=== PATIENT | male | born 1970 | race American Indian/Alaskan Native ===

== ENCOUNTER 2017-06-29 22:31 | Inpatient (IN) | payer MEDICAID ==
--- NOTE | 2017-06-29 22:51 | Emergency Department Report ---
ED General Adult HPI - General Chief complaint: Seizure Stated complaint: SEIZURE Time Seen by Provider: 06/29/17 22:47 Source: patient, EMS (ems notes not available at time of chart dictation), RN notes reviewed, old records reviewed Mode of arrival: Ambulatory Limitations: No Limitations - History of Present Illness Initial comments: This is a 47-year-old male whom I evaluated in the past. He does not have a primary care doctor. Past medical history includes anemia requiring packed red blood cell transfusion, hypertension, COPD, seizure disorder, noncompliant with Her therapy. Patient is brought to the hospital by EMS for breakthrough seizure. Patient reports she's been consuming alcohol today. He reports that he "fell out" and "had a seizure." Patient also complains of "total body pain." Patient denies midline neck pain, hematemesis and bright red blood per rectum. Patient's symptoms do not radiate anywhere, and did not have exacerbating or relieving factors. Patient's had extensive workup by GI in the past, they recommended pill capsule endoscopy which apparently has not been performed, and in the past was also found to have rectal prolapse, and this was proposed to be the etiology of GI bleed/anemia. In addition, patient also was found to have chronic iron deficiency anemia, and was close follow-up for IV iron supplementation, apparently this hasn't happened either. -: Sudden Improves with: none Worsens with: none Associated Symptoms: seizure, syncope, weakness. denies: confusion, chest pain , cough, diaphoresis, fever/chills, headaches, loss of appetite, malaise, nausea /vomiting, rash, shortness of breath - Related Data Previous Rx's Medication Instructions Recorded Last Taken Type Budesoni/Formotero 160-4.5(Nf) 2 puff IH BID #1 inha 01/04/15 Unknown Rx [Symbicort 160-4.5 (Nf)] Ferrous Sulfate [Feosol 325 MG tab] 325 mg PO QDAY #30 tablet 10/19/15 Unknown Rx Lisinopril [Zestril TAB] 10 mg PO QDAY #30 tablet 10/19/15 Unknown Rx levETIRAcetam [Keppra TAB] 3 tab PO QHS #90 tablet 10/19/15 Unknown Rx Allergies Allergy/AdvReac Type Severity Reaction Status Date / Time No Known Allergies Allergy Verified 06/29/17 22:51 ED Review of Systems ROS: Stated complaint: SEIZURE Other details as noted in HPI ED Past Medical Hx - Past Medical History Hx Hypertension: Yes Hx Congestive Heart Failure: No Hx Diabetes: No Hx Sickle Cell Disease: No Hx Seizures: Yes Hx Asthma: No Hx COPD: Yes Hx Tuberculosis: No Hx HIV: No Additional medical history: chronic anemia of unsure etiology, history of alcohol abuse - Social History Smoking Status: Current Every Day Smoker - Medications Home Medications: Home Medications Medication Instructions Recorded Confirmed Last Taken Type Budesoni/Formotero 160-4.5(Nf) 2 puff IH BID #1 inha 01/04/15 06/30/17 Unknown Rx [Symbicort 160-4.5 (Nf)] Ferrous Sulfate [Feosol 325 MG tab] 325 mg PO QDAY #30 tablet 10/19/15 06/30/17 Unknown Rx Lisinopril [Zestril TAB] 10 mg PO QDAY #30 tablet 10/19/15 06/30/17 Unknown Rx levETIRAcetam [Keppra TAB] 3 tab PO QHS #90 tablet 10/19/15 06/30/17 Unknown Rx ED Physical Exam - General Limitations: No Limitations General appearance: alert, in no apparent distress - Head Head exam: Present: atraumatic, normocephalic - Eye Eye exam: Present: normal appearance, EOMI. Absent: nystagmus - ENT ENT exam: Present: normal exam, normal orophraynx, mucous membranes moist, normal external ear exam - Neck Neck exam: Present: normal inspection, full ROM. Absent: tenderness, meningismus - Respiratory Respiratory exam: Present: normal lung sounds bilaterally. Absent: respiratory distress - Cardiovascular Cardiovascular Exam: Present: regular rate, normal rhythm, normal heart sounds. Absent: systolic murmur, diastolic murmur, rubs, gallop - GI/Abdominal GI/Abdominal exam: Present: soft, normal bowel sounds. Absent: distended, tenderness, guarding, rebound, rigid, pulsatile mass - Rectal Rectal exam: Present: deferred - Extremities Exam Extremities exam: Present: normal inspection, full ROM, normal capillary refill. Absent: pedal edema, joint swelling, calf tenderness - Back Exam Back exam: Present: normal inspection, full ROM. Absent: tenderness, CVA tenderness (R), paraspinal tenderness, vertebral tenderness - Neurological Exam Neurological exam: Present: alert, oriented X3, CN II-XII intact, normal gait, other (Extraocular movements intact. Tongue midline. No facial droop. Facial sensation intact to light touch in the V1, V2, V3 distribution bilaterally. 5 and 5 strength in 4 extremities.. Sensation is intact to light touch in 4 extremities.). Absent: motor sensory deficit - Psychiatric Psychiatric exam: Present: normal affect, normal mood - Skin Skin exam: Present: warm, dry, intact, normal color. Absent: rash ED Course Vital Signs 06/29/17 22:52 Temperature 98 F Pulse Rate 84 Respiratory 16 Rate Blood Pressure 132/74 O2 Sat by Pulse 100 Oximetry ED Medical Decision Making - Lab Data Result diagrams: 06/30/17 00:22 06/29/17 23:02 Vital Signs 06/29/17 22:52 Temperature 98 F Pulse Rate 84 Respiratory 16 Rate Blood Pressure 132/74 O2 Sat by Pulse 100 Oximetry Lab Results 06/29/17 06/29/17 06/29/17 Range/Units 23:02 23:02 23:02 WBC (4.5-11.0) K/mm3 RBC (3.65-5.03) M/mm3 Hgb (11.8-15.2) gm/dl Hct (35.5-45.6) % MCV (84-94) fl MCH (28-32) pg MCHC (32-34) % RDW (13.2-15.2) % Plt Count (140-440) K/mm3 PT 13.3 (12.2-14.9) Sec. INR 0.96 (0.87-1.13) Sodium 137 (137-145) mmol/L Potassium 3.8 (3.6-5.0) mmol/L Chloride 93.7 L (98-107) mmol/L Carbon Dioxide 21 L (22-30) mmol/L Anion Gap 26 mmol/L BUN 4 L (9-20) mg/dL Creatinine 0.6 L (0.8-1.5) mg/dL Estimated GFR > 60 ml/min BUN/Creatinine Ratio 7 % Glucose 75 (75-100) mg/dL Calcium 8.8 (8.4-10.2) mg/dL Magnesium 1.60 L (1.7-2.3) mg/dL Total Bilirubin 0.30 (0.1-1.2) mg/dL AST 92 H (5-40) units/L ALT 35 (7-56) units/L Alkaline Phosphatase 119 (35-129) units/L Total Creatine Kinase 30 L (55-170) units/L Total Protein 7.4 (6.3-8.2) g/dL Albumin 3.1 L (3.9-5) g/dL Albumin/Globulin Ratio 0.7 % Urine Color (Yellow) Urine Turbidity (Clear) Urine pH (5.0-7.0) Ur Specific [place] (1.003-1.030) Urine Protein (Negative) mg/dL Urine Glucose (UA) (Negative) mg/dL Urine Ketones (Negative) mg/dL Urine Blood (Negative) Urine Nitrite (Negative) Urine Bilirubin (Negative) Urine Urobilinogen (<2.0) mg/dL Ur Leukocyte Esterase (Negative) Urine WBC (Auto) (0.0-6.0) /HPF Urine RBC (Auto) (0.0-6.0) /HPF Urine Mucus /HPF Salicylates < 0.3 L (2.8-20.0) mg/dL Acetaminophen (10.0-30.0) ug/mL Plasma/Serum Alcohol (0-0.07) % 06/29/17 06/29/17 06/30/17 Range/Units 23:02 23:02 00:06 WBC (4.5-11.0) K/mm3 RBC (3.65-5.03) M/mm3 Hgb (11.8-15.2) gm/dl Hct (35.5-45.6) % MCV (84-94) fl MCH (28-32) pg MCHC (32-34) % RDW (13.2-15.2) % Plt Count (140-440) K/mm3 PT (12.2-14.9) Sec. INR (0.87-1.13) Sodium (137-145) mmol/L Potassium (3.6-5.0) mmol/L Chloride (98-107) mmol/L Carbon Dioxide (22-30) mmol/L Anion Gap mmol/L BUN (9-20) mg/dL Creatinine (0.8-1.5) mg/dL Estimated GFR ml/min BUN/Creatinine Ratio % Glucose (75-100) mg/dL Calcium (8.4-10.2) mg/dL Magnesium (1.7-2.3) mg/dL Total Bilirubin (0.1-1.2) mg/dL AST (5-40) units/L ALT (7-56) units/L Alkaline Phosphatase (35-129) units/L Total Creatine Kinase (55-170) units/L Total Protein (6.3-8.2) g/dL Albumin (3.9-5) g/dL Albumin/Globulin Ratio % Urine Color Colorless (Yellow) Urine Turbidity Clear (Clear) Urine pH 6.0 (5.0-7.0) Ur Specific [place] 1.002 L (1.003-1.030) Urine Protein <15 mg/dl (Negative) mg/dL Urine Glucose (UA) Neg (Negative) mg/dL Urine Ketones Neg (Negative) mg/dL Urine Blood Neg (Negative) Urine Nitrite Neg (Negative) Urine Bilirubin Neg (Negative) Urine Urobilinogen < 2.0 (<2.0) mg/dL Ur Leukocyte Esterase Neg (Negative) Urine WBC (Auto) < 1.0 (0.0-6.0) /HPF Urine RBC (Auto) < 1.0 (0.0-6.0) /HPF Urine Mucus 1+ /HPF Salicylates (2.8-20.0) mg/dL Acetaminophen 15.0 (10.0-30.0) ug/mL Plasma/Serum Alcohol 0.32 H (0-0.07) % 06/30/17 Range/Units 00:22 WBC 4.2 L (4.5-11.0) K/mm3 RBC 2.15 L (3.65-5.03) M/mm3 Hgb 4.4 L* (11.8-15.2) gm/dl Hct 15.7 L* (35.5-45.6) % MCV 73 L (84-94) fl MCH 20 L (28-32) pg MCHC 28 L (32-34) % RDW 24.5 H (13.2-15.2) % Plt Count 196 (140-440) K/mm3 PT (12.2-14.9) Sec. INR (0.87-1.13) Sodium (137-145) mmol/L Potassium (3.6-5.0) mmol/L Chloride (98-107) mmol/L Carbon Dioxide (22-30) mmol/L Anion Gap mmol/L BUN (9-20) mg/dL Creatinine (0.8-1.5) mg/dL Estimated GFR ml/min BUN/Creatinine Ratio % Glucose (75-100) mg/dL Calcium (8.4-10.2) mg/dL Magnesium (1.7-2.3) mg/dL Total Bilirubin (0.1-1.2) mg/dL AST (5-40) units/L ALT (7-56) units/L Alkaline Phosphatase (35-129) units/L Total Creatine Kinase (55-170) units/L Total Protein (6.3-8.2) g/dL Albumin (3.9-5) g/dL Albumin/Globulin Ratio % Urine Color (Yellow) Urine Turbidity (Clear) Urine pH (5.0-7.0) Ur Specific [place] (1.003-1.030) Urine Protein (Negative) mg/dL Urine Glucose (UA) (Negative) mg/dL Urine Ketones (Negative) mg/dL Urine Blood (Negative) Urine Nitrite (Negative) Urine Bilirubin (Negative) Urine Urobilinogen (<2.0) mg/dL Ur Leukocyte Esterase (Negative) Urine WBC (Auto) (0.0-6.0) /HPF Urine RBC (Auto) (0.0-6.0) /HPF Urine Mucus /HPF Salicylates (2.8-20.0) mg/dL Acetaminophen (10.0-30.0) ug/mL Plasma/Serum Alcohol (0-0.07) % - EKG Data -: EKG Interpreted by Ri - EKG Data 06/30/17 00:47 Sinus tachycardia, 103 bpm, normal axis, QTC prolonged, high left ventricular voltage, abnormal EKG, not morphologically consistent with a location myocardial infarction. - Radiology Data Radiology results: report reviewed, image reviewed Noncontrast CT scan of the brain and cervical spine are negative for acute traumatic disease. - Medical Decision Making Differential diagnosis, including not limited to, alcohol intoxication, anemia, breakthrough seizure secondary to medication noncompliance, acute on chronic anemia, intracranial injury, cervical spine injury Assessment and plan: Year-old male with breakthrough seizure, most likely secondary to medication noncompliance. Also was intoxicated. Noncontrast CT scan of the brain and cervical spine negative. Patient also having acute on chronic anemia, hemoglobin, hematocrit 4/15. He denies hematemesis and bright red blood per rectum. He is loaded with Keppra, packed red blood cell transfusion ordered, cases presented to the Hospital physician, Dr. Chawla, she accepts the patient to the medical service. Critical care attestation.: If time is entered above; I have spent that time in minutes in the direct care of this critically ill patient, excluding procedure time. ED Disposition Clinical Impression: Seizures, Severe anemia, Alcohol abuse Disposition: DC- OP ADMIT IP TO THIS HOSP Is pt being admited?: Yes Does the pt Need Aspirin: No Condition: Good
[2017-06-29] MEDS ORDERED: KEPPRA 1,000 MG/NS 0.75% 100ML 1,000 MG/100 ML BAG IV ONE (23:06)
--- NOTE | 2017-06-29 23:43 | Cat Scan Report ---
FINAL REPORT EXAM: CT HEAD/BRAIN WO CON HISTORY: etoh seizure TECHNIQUE: CT head without contrast PRIORS: None. FINDINGS: No acute intra-axial or extra-axial hemorrhage is identified. There is no evidence of midline shift or mass effect. The ventricles and sulci are within normal limits. Mireles-white matter differentiation is intact. No acute parenchymal abnormalities seen. Bony calvarium is grossly intact. Visualized portions of the mastoids and paranasal sinuses are unremarkable. IMPRESSION: Negative CT head
[2017-06-29 23:44] LABS: INR 0.96 (0.87-1.13)
--- NOTE | 2017-06-29 23:44 | Cat Scan Report ---
FINAL REPORT EXAM: CT CERVICAL SPINE WO CON HISTORY: etoh seizure TECHNIQUE: CT cervical spine with reconstructions PRIORS: None. FINDINGS: Vertebral bodies demonstrate normal height and alignment. The disk spaces are within normal limits. The facet joints demonstrate normal alignment. The spinous processes are intact. Craniocervical junction is unremarkable. C1 and C2 are intact. IMPRESSION: Negative CT cervical spine. No acute abnormality seen.
[2017-06-29 23:45] LABS: Alanine Aminotransferase 35 units/L (7-56); Albumin 3.1 g/dL (3.9-5); BUN/Creatinine Ratio 7; Blood Urea Nitrogen 4 mg/dL (9-20); Calcium 8.8 mg/dL (8.4-10.2); Hemolysis Index 0
[2017-06-30] MEDS ORDERED: TYLENOL ONE (00:12)
[2017-06-30] MEDS ORDERED: TYLENOL PO ONE (00:16)
[2017-06-30 00:26] LABS: Bilirubin,Urine NEG (Negative); Blood,Urine NEG (Negative); Nitrite,Urine NEG (Negative); Protein,Urine <15 mg/dL mg/dL (Negative); Urobilinogen,Urine < 2.0 mg/dL (<2.0); WBC,Urine < 1.0 /HPF (0.0-6.0)
[2017-06-30] MEDS ORDERED: NACL 0.9% 500 ML 500 ML IV ONE (00:28)
[2017-06-30 00:32] LABS: Mean Corpuscular HGB Conc 28 % (32-34); Mean Corpuscular Volume 73 fl (84-94); Platelet Count 196 K/mm3 (140-440); Red Blood Count 2.15 M/mm3 (3.65-5.03)
[2017-06-30 00:33] LABS: Hematocrit 15.7 % (35.5-45.6); Hemoglobin 4.4 gm/dl (11.8-15.2); Mean Corpuscular Hemoglobin 20 pg (28-32); Red Cell Distribution Width 24.5 % (13.2-15.2)
[2017-06-30 00:35] LABS: Color,Urine Colorless (Yellow); Mucus,Urine 1+ /HPF; RBC,Urine < 1.0 /HPF (0.0-6.0)
[2017-06-30 00:48] LABS: Amphetamine Screen,Urine PRESUMPTIVE NEGATIVE; Benzodiazepines Screen,Urine PRESUMPTIVE NEGATIVE; Cannabinoid Screen,Urine PRESUMPTIVE NEGATIVE; Cocaine Screen,Urine PRESUMPTIVE NEGATIVE; Methadone Screen,Urine PRESUMPTIVE NEGATIVE; Opiate Screen,Urine PRESUMPTIVE NEGATIVE
[2017-06-30 02:22] LABS: Band Neutrophils # (Manual) 0.3 K/mm3; Basophils % (Manual) 0 % (0.0-1.8); Eosinophils % (Manual) 0 % (0.0-4.3); Total Cells Counted 100
[2017-06-30 02:23] LABS: Anisocytosis 2+; Hypochromasia 2+; Ovalocytes Few; Poikilocytosis 1+; Target Cells Few
[2017-06-30] MEDS ORDERED: NACL 0.9% 500 ML 500 ML ONE ×2 (02:39→05:02)
[2017-06-30] MEDS ORDERED: ATIVAN IV PRN (02:49)
--- NOTE | 2017-06-30 05:54 | History and Physical Report ---
History of Present Illness Date of examination: 06/29/17 Date of admission: 06/30/17 02:49 History of present illness: 45-year-old man with a history of seizure, anemia, estrogen dependent, COPD comes to the emergency room with complaints of a seizure. Patient has not taken his Keppra in 6 months. In the emergency room he was found to have a low hemoglobin, patient is asymptomatic Review Of Systems: Constitutional: no weight loss Ears, eyes, nose, mouth and throat: no nasal congestion, no nasal discharge, no sinus pressure, blurry vision, diplopia Neck: No neck pain or rigidity. Cardiovascular: chest pain, orthopnea, palpitations Respiratory: No shortness of breath, cough Gastrointestinal: abdominal pain, hematochezia Genitourinary : no dysuria, frequency , hematuria Musculoskeletal: no muscle ache Integumentary: no rash, no pruritis Neurological: no parathesias, focal weakness Endocrine: no cold or heat intolerance, no polyuria or polydipsia Hematologic/Lymphatic: no easy bruising, no easy bleeding, no gland swelling Allergic/Immunologic: no urticaria, no angioedema. PAST SURGICAL HISTORY: None SOCIAL HISTORY: Smoke 1/6 pack of cigarettes a day, quit alcohol use, no drug use FAMILY HISTORY: Hypertension Medications and Allergies Allergies Allergy/AdvReac Type Severity Reaction Status Date / Time No Known Allergies Allergy Verified 06/29/17 22:51 Home Medications Medication Instructions Recorded Confirmed Last Taken Type Budesoni/Formotero 160-4.5(Nf) 2 puff IH BID #1 inha 01/04/15 06/30/17 Unknown Rx [Symbicort 160-4.5 (Nf)] Ferrous Sulfate [Feosol 325 MG tab] 325 mg PO QDAY #30 tablet 10/19/15 06/30/17 Unknown Rx Lisinopril [Zestril TAB] 10 mg PO QDAY #30 tablet 10/19/15 06/30/17 Unknown Rx levETIRAcetam [Keppra TAB] 3 tab PO QHS #90 tablet 10/19/15 06/30/17 Unknown Rx Active Meds: Active Medications Lorazepam (Ativan) 2 mg IV Q4H PRN PRN Reason: Seizures Exam - Physical Exam Narrative exam: Gen. appearance: Patient lying in bed in no acute distress HEENT: Normocephalic/atraumatic, pupils equal round reactive to light, extra alkaline movement intact, no scleral icterus, no JVD or thyromegaly or nodule, neck is supple, mucous membrane moist, no erythema or exudate Heart: S1-S2, regular rate and rhythm Lungs: Clear to auscultation bilateral breathing comfortable Abdomen: Positive bowel sounds, nontender, nondistended, no organomegaly Extremities: No edema, cyanosis, clubbing Neuro:: Oriented 3 , cranial nerves II-12 intact, speech, motor intact Skin: No rash, nodules, warm dry - Constitutional Vitals: Temp Pulse Resp BP Pulse Ox 98.1 F 84 18 112/72 99 06/30/17 04:41 06/30/17 04:10 06/30/17 04:41 06/30/17 04:41 06/30/17 04:10 Results - Labs CBC & Chem 7: 06/30/17 00:22 06/29/17 23:02 Labs: Abnormal lab results 06/29/17 06/29/17 06/29/17 Range/Units 23:02 23:02 23:02 WBC (4.5-11.0) K/mm3 RBC (3.65-5.03) M/mm3 Hgb (11.8-15.2) gm/dl Hct (35.5-45.6) % MCV (84-94) fl MCH (28-32) pg MCHC (32-34) % RDW (13.2-15.2) % Nucleated RBC % (0.0-0.9) % Lymphocytes # (Manual) (1.2-5.4) K/mm3 Chloride 93.7 L (98-107) mmol/L Carbon Dioxide 21 L (22-30) mmol/L BUN 4 L (9-20) mg/dL Creatinine 0.6 L (0.8-1.5) mg/dL Magnesium 1.60 L (1.7-2.3) mg/dL AST 92 H (5-40) units/L Total Creatine Kinase 30 L (55-170) units/L Albumin 3.1 L (3.9-5) g/dL Ur Specific [place] (1.003-1.030) Salicylates < 0.3 L (2.8-20.0) mg/dL Plasma/Serum Alcohol 0.32 H (0-0.07) % Crossmatch 06/29/17 06/30/17 06/30/17 Range/Units 23:02 00:06 00:22 WBC 4.2 L (4.5-11.0) K/mm3 RBC 2.15 L (3.65-5.03) M/mm3 Hgb 4.4 L* (11.8-15.2) gm/dl Hct 15.7 L* (35.5-45.6) % MCV 73 L (84-94) fl MCH 20 L (28-32) pg MCHC 28 L (32-34) % RDW 24.5 H (13.2-15.2) % Nucleated RBC % 3.0 H (0.0-0.9) % Lymphocytes # (Manual) 1.0 L (1.2-5.4) K/mm3 Chloride (98-107) mmol/L Carbon Dioxide (22-30) mmol/L BUN (9-20) mg/dL Creatinine (0.8-1.5) mg/dL Magnesium (1.7-2.3) mg/dL AST (5-40) units/L Total Creatine Kinase (55-170) units/L Albumin (3.9-5) g/dL Ur Specific [place] 1.002 L (1.003-1.030) Salicylates (2.8-20.0) mg/dL Plasma/Serum Alcohol (0-0.07) % Crossmatch See Detail - Imaging and Cardiology CT Scan - head: report reviewed Assessment and Plan Assessment Seizure, acute on chronic Severe anemia, acute on chronic COPD, stable Plan Admit to medicine Transfuse 3 units of packed red blood cells Status post loading dose of Keppra, continue Keppra, IV Ativan as needed Continue appropriate outpatient medications, consult GI Start DVT prophylaxis
--- NOTE | 2017-06-30 08:40 | Progress Note ---
Assessment and Plan Seizure, acute on chronic Severe anemia, acute on chronic COPD, stable Alcohol abuse Plan CIWA DT precaution Transfuse 3 units of packed red blood cells Status post loading dose of Keppra, continue Keppra, IV Ativan as needed Continue appropriate outpatient medications, consult GI Start DVT prophylaxis Subjective Date of service: 06/30/17 Principal diagnosis: Aocohol withdrawal, seizures Interval history: no seizures Objective - Constitutional Vitals: Vital Signs - 12hr 06/29/17 06/30/17 06/30/17 22:52 02:36 02:54 Temperature 98 F 98.5 F Pulse Rate 84 102 H Respiratory 16 16 Rate Blood Pressure 132/74 115/70 Blood Pressure [Left] O2 Sat by Pulse 100 100 98 Oximetry 06/30/17 06/30/17 06/30/17 03:00 03:10 03:15 Temperature 98 F Pulse Rate 74 Respiratory 16 Rate Blood Pressure 117/72 117/72 110/70 Blood Pressure [Left] O2 Sat by Pulse 100 100 95 Oximetry 06/30/17 06/30/17 06/30/17 03:20 03:21 03:30 Temperature Pulse Rate 74 Respiratory 16 Rate Blood Pressure 115/70 115/73 Blood Pressure 110/70 [Left] O2 Sat by Pulse 99 95 Oximetry 06/30/17 06/30/17 06/30/17 03:39 03:40 03:50 Temperature 98.2 F Pulse Rate 100 H Respiratory 16 Rate Blood Pressure 115/73 115/73 115/73 Blood Pressure [Left] O2 Sat by Pulse 99 99 99 Oximetry 06/30/17 06/30/17 06/30/17 04:00 04:10 04:41 Temperature 98 F 98.1 F Pulse Rate 84 Respiratory 16 18 Rate Blood Pressure 114/72 114/72 112/72 Blood Pressure [Left] O2 Sat by Pulse 99 Oximetry 06/30/17 06/30/17 06/30/17 05:53 06:08 06:38 Temperature 98.1 F 98.2 F 98.7 F Pulse Rate 107 H 100 H 96 H Respiratory 18 17 19 Rate Blood Pressure 112/72 138/88 138/84 Blood Pressure [Left] O2 Sat by Pulse 99 100 100 Oximetry 06/30/17 06:50 Temperature 98.7 F Pulse Rate 97 H Respiratory 20 Rate Blood Pressure 138/84 Blood Pressure [Left] O2 Sat by Pulse 100 Oximetry General appearance: Present: no acute distress, well-nourished - EENT Eyes: PERRL, EOM intact Ears: bilateral: normal - Neck Neck: supple, normal ROM - Respiratory Respiratory effort: normal Respiratory: bilateral: CTA - Breasts Breasts: normal - Cardiovascular Rhythm: regular Heart Sounds: Present: S1 & S2. Absent: gallop, rub Extremities: pulses intact, No edema, normal color, Full ROM - Gastrointestinal General gastrointestinal: Present: soft, non-tender, non-distended, normal bowel sounds - Integumentary Integumentary: clear, warm, dry - Musculoskeletal Musculoskeletal: 1, strength equal bilaterally - Neurologic Neurologic: moves all extremities - Psychiatric Psychiatric: memory intact, appropriate mood/affect, intact judgment & insight - Labs CBC & Chem 7: 06/30/17 18:31 06/29/17 23:02 Labs: Abnormal lab results 06/29/17 06/29/17 06/29/17 Range/Units 23:02 23:02 23:02 WBC (4.5-11.0) K/mm3 RBC (3.65-5.03) M/mm3 Hgb (11.8-15.2) gm/dl Hct (35.5-45.6) % MCV (84-94) fl MCH (28-32) pg MCHC (32-34) % RDW (13.2-15.2) % Nucleated RBC % (0.0-0.9) % Lymphocytes # (Manual) (1.2-5.4) K/mm3 Chloride 93.7 L (98-107) mmol/L Carbon Dioxide 21 L (22-30) mmol/L BUN 4 L (9-20) mg/dL Creatinine 0.6 L (0.8-1.5) mg/dL Magnesium 1.60 L (1.7-2.3) mg/dL AST 92 H (5-40) units/L Total Creatine Kinase 30 L (55-170) units/L Albumin 3.1 L (3.9-5) g/dL Ur Specific [place] (1.003-1.030) Salicylates < 0.3 L (2.8-20.0) mg/dL Plasma/Serum Alcohol 0.32 H (0-0.07) % Crossmatch 06/29/17 06/30/1718 Range/Units 23:02 00:06 00:22 WBC 4.2 L (4.5-11.0) K/mm3 RBC 2.15 L (3.65-5.03) M/mm3 Hgb 4.4 L* (11.8-15.2) gm/dl Hct 15.7 L* (35.5-45.6) % MCV 73 L (84-94) fl MCH 20 L (28-32) pg MCHC 28 L (32-34) % RDW 24.5 H (13.2-15.2) % Nucleated RBC % 3.0 H (0.0-0.9) % Lymphocytes # (Manual) 1.0 L (1.2-5.4) K/mm3 Chloride (98-107) mmol/L Carbon Dioxide (22-30) mmol/L BUN (9-20) mg/dL Creatinine (0.8-1.5) mg/dL Magnesium (1.7-2.3) mg/dL AST (5-40) units/L Total Creatine Kinase (55-170) units/L Albumin (3.9-5) g/dL Ur Specific [place] 1.002 L (1.003-1.030) Salicylates (2.8-20.0) mg/dL Plasma/Serum Alcohol (0-0.07) % Crossmatch See Detail
[2017-06-30] MEDS ORDERED: ZOFRAN IV PRN (10:26)
[2017-06-30] MEDS: PERCOCET 5/325 PO PRN ×2 (11:51→19:30)
[2017-06-30] MEDS: HABITROL TD SCH (11:52)
[2017-06-30 12:59] LABS: Hematocrit 18.9 % (35.5-45.6)
[2017-06-30] MEDS ORDERED: NACL 0.9% 500 ML 500 ML IV SCH (18:30)
[2017-06-30 19:05] LABS: Hematocrit 18.9 % (35.5-45.6)
[2017-06-30] MEDS: KEPPRA 750 MG in NACL 0.9% 100 ML IV SCH (22:15)
[2017-07-01] MEDS: PERCOCET 5/325 PO PRN (03:22)
[2017-07-01] MEDS: KEPPRA 750 MG in NACL 0.9% 100 ML IV SCH (11:45)
[2017-07-01] MEDS: HABITROL TD SCH (11:45)
[2017-07-01 14:28] LABS: Basophils # (Auto) 0.1 K/mm3 (0.0-0.1); Basophils % (Auto) 1.2 % (0.0-1.8); Eosinophils # (Auto) 0.1 K/mm3 (0.0-0.4); Eosinophils % (Auto) 1.2 % (0.0-4.3); Hemoglobin 9.1 gm/dl (11.8-15.2); Lymphocytes # (Auto) 0.6 K/mm3 (1.2-5.4); Lymphocytes % (Auto) 12.7 % (13.4-35.0); Mean Corpuscular HGB Conc 33 % (32-34); Mean Corpuscular Hemoglobin 27 pg (28-32); Mean Corpuscular Volume 82 fl (84-94); Monocytes # (Auto) 0.6 K/mm3 (0.0-0.8); Monocytes % (Auto) 12.3 % (0.0-7.3); Platelet Count 100 K/mm3 (140-440); Red Blood Count 3.43 M/mm3 (3.65-5.03)
[2017-07-01 14:39] LABS: Red Cell Distribution Width 24.2 % (13.2-15.2)
[2017-07-01 14:50] LABS: Alanine Aminotransferase 22 units/L (7-56); Albumin 2.5 g/dL (3.9-5); BUN/Creatinine Ratio 6; Blood Urea Nitrogen 4 mg/dL (9-20); Calcium 8.2 mg/dL (8.4-10.2); Hemolysis Index 7
[2017-07-01 16:12] VITALS: BP 141/93
--- NOTE | 2017-07-01 16:55 | Discharge Summary ---
Providers - Providers Date of Admission: 06/30/17 02:49 Attending physician: NELLY MILLER MD 06/30/17 12:40 Consult to Dietitian/Nutrition [CONS] Routine Physician Instructions: Reason For Exam: Reason for Consult: Malnutrition Primary care physician: CABLE OPERATOR Hospitalization Condition: Good Hospital course: 45-year-old man with a history of seizure, anemia, estrogen dependent, COPD comes to the emergency room with complaints of a seizure. Patient has not taken his Keppra in 6 months. In the emergency room he was found to have a low hemoglobin, patient is asymptomatic Seizure, acute on chronic Severe anemia, acute on chronic COPD, stable Alcohol abuse Plan CIWA DT precaution Transfuse 3 units of packed red blood cells Status post loading dose of Keppra, continue Keppra, IV Ativan as needed Continue appropriate outpatient medications, consult GI Start DVT prophylaxis Disposition: TO HOME OR SELFCARE Time spent for discharge: 33 minutes Core Measure Documentation - Palliative Care Palliative Care/ Comfort Measures: Not Applicable - Core Measures Any of the following diagnoses?: none Exam - Constitutional Vitals: Temp Pulse Resp BP Pulse Ox 98.9 F 102 H 18 141/93 99 07/01/17 15:48 07/01/17 15:48 07/01/17 15:48 07/01/17 15:48 07/01/17 15:48 General appearance: Present: no acute distress, well-nourished - EENT Eyes: Present: PERRL ENT: hearing intact, clear oral mucosa - Neck Neck: Present: supple, normal ROM - Respiratory Respiratory effort: normal Respiratory: bilateral: CTA - Cardiovascular Heart Sounds: Present: S1 & S2. Absent: rub, click - Extremities Extremities: pulses symmetrical, No edema Peripheral Pulses: within normal limits - Abdominal General gastrointestinal: Present: soft, non-tender, non-distended, normal bowel sounds Male genitourinary: Present: normal - Integumentary Integumentary: Present: clear, warm, dry - Musculoskeletal Musculoskeletal: gait normal, strength equal bilaterally - Psychiatric Psychiatric: appropriate mood/affect, intact judgment & insight - Neurologic Neurologic: CNII-XII intact, moves all extremities Plan Follow up with: PRIMARY CARE, [Primary Care Provider] - 3-5 Days Prescriptions: Budesoni/Formotero 160-4.5(Nf) [Symbicort 160-4.5 (Nf)] 2 puff IH BID #1 inha Ferrous Sulfate [Feosol 325 MG tab] 325 mg PO QDAY #30 tablet levETIRAcetam [Keppra TAB] 750 mg PO BID 30 Days tablet Lisinopril [Zestril TAB] 10 mg PO QDAY #30 tablet Nicotine [Habitrol] 21 mg TD QDAY #30 patch
[2017-07-02] MEDS ORDERED: KEPPRA PO SCH (10:00)
== END 2017-07-01 19:33 | disposition home or self-care (01) | DRG 812 ==
LOC: ED 22:31 → 3A 06-30 02:49
PROVIDERS: ADMIT Internal Medicine; ATTEND Internal Medicine
PROC: 30233N1 Transfusion of Nonautologous Red Blood Cells into Peripheral Vein, Percutaneous Approach (ICD-10-PCS; principal; 2017-06-30)
DX: D50.0 Iron deficiency anemia secondary to blood loss (chronic) (principal); G40.909 Epilepsy, unspecified, not intractable, without status epilepticus; I10 Essential (primary) hypertension; J44.9 Chronic obstructive pulmonary disease, unspecified; F17.200 Nicotine dependence, unspecified, uncomplicated; F10.10 Alcohol abuse, uncomplicated; Y90.9 Presence of alcohol in blood, level not specified; F17.210 Nicotine dependence, cigarettes, uncomplicated; D64.9 Anemia, unspecified; Z82.49 Family history of ischemic heart disease and other diseases of the circulatory system
CPT/HCPCS: 36415; 36430; 70450; 72125; 80053; 80307; 80320; 81001; 82550; 83735; 85007; 85014; 85018; 85025; 85027; 85610; 86850; 86900; 86901; 86920; 93005; 93010; 96365; 96366; 99406; G0480; J1953; J2405; J7040; P9016

== ENCOUNTER 2017-08-11 00:58 | Emergency (ER) | payer MEDICAID ==
[2017-08-11] MEDS ORDERED: SUBLIMAZE IV ONE (01:02)
[2017-08-11] MEDS ORDERED: NACL 0.9% 1000 ML 1,000 ML ONE (01:02)
[2017-08-11] MEDS ORDERED: AMIDATE IV ONE ×2 (01:15→01:20)
[2017-08-11] MEDS ORDERED: NACL 0.9% 1000 ML 1,000 ML IV ONE ×3 (01:20→05:19)
--- NOTE | 2017-08-11 01:21 | Emergency Department Report ---
ED General Adult HPI - General Chief complaint: Weakness Stated complaint: CHEST PAIN Time Seen by Provider: 08/11/17 01:19 Source: patient, EMS (verbal report received from EMS.ems notes not available at time of chart dictation), RN notes reviewed, old records reviewed Limitations: Physical Limitation - History of Present Illness Initial comments: This is a 47-year-old male. I have evaluated him in the past. Past medical history includes anemia, seizure disorder, alcohol consumption. Please see my note from 06/29/2017 for more detailed past medical history. Patient does report a history of COPD. The patient is brought to the hospital today by EMS for seizure versus syncope, tachycardia, possible SVT. EMS reported that patient in the field had a supraventricular tachycardia did that did not respond to vagal maneuvers or to 100 J shock. They also report that the patient was diaphoretic, complaining of chest pain and weakness, and had no pulses. Upon arrival to the ER, the patient was awake, complaining of generalized weakness and had thready pulses. He had a tachycardic rhythm that was consistently 160 bpm, appeared to be consistent with supraventricular tachycardia. It did not respond to vagal maneuvers, the patient was hypotensive. He was therefore administrated weakly consented by myself for moderate sedation and synchronized cardioversion. He was given 10 mg of etomidate, and 25 g of fentanyl, and received a cardioversion at 200 J. At the same time, he had 1 L of normal saline open wide open. At the cardioversion, rhythm remained unchanged, it appeared to slow down slightly to the high 140s, low 150s. Blood pressure now improved in the high 90s, low 100s, still tachycardic. Given that patient is tachycardic, with thready pulses, low blood pressure, seizure versus syncope, emergency CT scan of the head, neck, chest are ordered by myself. Given tenuous vital signs and critical nature of the patient's condition, the patient was administratively, emergently consented by myself For emergent CT angiogram of the chest. I did explain this to the patient and his friend/family, and they also verbalize understanding, and gave verbal consent. -: Gradual, days(s) Location: chest Radiation: non-radiation Quality: aching Consistency: intermittent Improves with: none Worsens with: none Associated Symptoms: confusion, chest pain, headaches, loss of appetite, malaise , seizure, shortness of breath, syncope, weakness. denies: cough, diaphoresis, fever/chills, nausea/vomiting, rash - Related Data Previous Rx's Medication Instructions Recorded Last Taken Type Lisinopril [Zestril TAB] 10 mg PO QDAY #30 tablet 07/01/17 1 Week Ago Rx ~08/04/17 levETIRAcetam [Keppra TAB] 750 mg PO BID 30 Days tablet 07/01/17 1 Week Ago Rx ~08/04/17 Allergies Allergy/AdvReac Type Severity Reaction Status Date / Time No Known Allergies Allergy Verified 06/29/17 22:51 ED Review of Systems ROS: Stated complaint: CHEST PAIN Other details as noted in HPI Comment: All other systems reviewed and negative ED Past Medical Hx - Past Medical History Hx Hypertension: Yes Hx Congestive Heart Failure: No Hx Diabetes: No Hx Sickle Cell Disease: No Hx Seizures: Yes Hx Asthma: No Hx COPD: Yes Hx Tuberculosis: No Hx HIV: No Additional medical history: chronic anemia of unsure etiology, history of alcohol abuse - Social History Smoking Status: Current Every Day Smoker - Medications Home Medications: Home Medications Medication Instructions Recorded Confirmed Last Taken Type Lisinopril [Zestril TAB] 10 mg PO QDAY #30 tablet 07/01/17 08/11/17 1 Week Ago Rx ~08/04/17 levETIRAcetam [Keppra TAB] 750 mg PO BID 30 Days tablet 07/01/17 08/11/17 1 Week Ago Rx ~08/04/17 ED Physical Exam - General Limitations: Physical Limitation General appearance: alert, in distress, cachectic - Head Head exam: Present: atraumatic, normocephalic - Eye Eye exam: Present: normal appearance, EOMI - ENT ENT exam: Present: mucous membranes dry - Neck Neck exam: Present: normal inspection, full ROM - Respiratory Respiratory exam: Present: normal lung sounds bilaterally. Absent: respiratory distress - Cardiovascular Cardiovascular Exam: Present: normal rhythm, tachycardia, normal heart sounds. Absent: systolic murmur, diastolic murmur, rubs, gallop - GI/Abdominal GI/Abdominal exam: Present: soft, normal bowel sounds. Absent: distended, tenderness, guarding, rebound, rigid, pulsatile mass - Rectal Rectal exam: Present: deferred - Extremities Exam Extremities exam: Present: normal inspection, full ROM, normal capillary refill. Absent: pedal edema, joint swelling, calf tenderness - Back Exam Back exam: Present: normal inspection, full ROM. Absent: tenderness, CVA tenderness (R), paraspinal tenderness, vertebral tenderness - Neurological Exam Neurological exam: Present: alert, oriented X3, CN II-XII intact, other ( Extraocular movements intact. Tongue midline. No facial droop. Facial sensation intact to light touch in the V1, V2, V3 distribution bilaterally. 5 and 5 strength in 4 extremities.. Sensation is intact to light touch in 4 extremities.). Absent: motor sensory deficit - Psychiatric Psychiatric exam: Present: anxious - Skin Skin exam: Present: warm, dry, intact, normal color. Absent: rash ED Course Vital Signs 08/11/17 08/11/17 08/11/17 00:58 01:00 01:15 Temperature Pulse Rate 160 H 161 H 151 H Respiratory 70 H 34 H 31 H Rate Blood Pressure 90/48 116/53 O2 Sat by Pulse 100 Oximetry 08/11/17 08/11/17 08/11/17 01:58 02:00 02:15 Temperature Pulse Rate 149 H 151 H 146 H Respiratory 34 H 23 27 H Rate Blood Pressure 116/53 91/42 109/50 O2 Sat by Pulse 100 100 100 Oximetry 08/11/17 08/11/17 08/11/17 02:30 02:45 03:00 Temperature Pulse Rate 146 H 149 H 147 H Respiratory 31 H 26 H 22 Rate Blood Pressure 119/57 113/63 116/64 O2 Sat by Pulse 100 100 100 Oximetry 08/11/17 03:16 Temperature 98.1 F Pulse Rate Respiratory Rate Blood Pressure O2 Sat by Pulse Oximetry - Reevaluation(s) Reevaluation #1: 08/11/17 03:10 08/11/17 03:11 Patient has a chronic rectal prolapse. He has brown stool that is guaiac positive. His rectal temperature was 98.1. CT scan of the chest is negative. Still tachycardic, blood pressure improving. Also found to be hypoglycemic. May be a component of starvation ketosis. D5 half-normal ordered. Patient mentating. Lactic acid ordered, I expected to be elevated. Case presented to the Hospital physician, Dr. Chawla, she accepted the patient to the medical service. Reevaluation #2: 08/11/17 04:15 Elevated lactic acid level is appreciated. This is most likely secondary to dehydration, chronic alcohol consumption, possible seizure. However, given tachycardia and lactic acidosis, patient does meet systemic inflammatory response syndrome criteria, and while I clinically doubt bacteremia, patient will be covered empirically with ceftriaxone and blood cultures will be obtained. Patient has already received adequate fluid bolus in accordance with the sepsis guidelines. - Procedure Description Procedures done: Patient placed on a monitoring specialist, and pacing pads applied, charged up to 200 J, and received one synchronized cardioversion. Patient tolerated this procedure well, no complications noted. - EJ/Peripheral Line Neck L Time Out Performed: Yes Indications: multiple IV sites needed Skin Cleansed in Sterile Fashion: Yes Size: 18 Dressing Placed: Tegaderm Patient Tolerated Procedure: well - Moderate Sedation Indications: other (synchronized cardioversion) Presedation Evaluation: Please see history of present illness ASA Class: III Mallampati Airway Score: 1 Preparation: monitoring specialist applied, pulse oximeter, supplemental O2 applied Fentanyl: IV Fentanyl Dose: 25 IV Etomidate Dose (mgs): 10 Complications: none Patient Tolerated Procedure: well ED Medical Decision Making - Lab Data Result diagrams: 08/11/17 01:41 08/11/17 01:41 Vital Signs 08/11/17 08/11/17 08/11/17 00:58 01:00 01:15 Pulse Rate 160 H 161 H 151 H Respiratory 70 H 34 H 31 H Rate Blood Pressure 90/48 116/53 O2 Sat by Pulse 100 Oximetry 08/11/17 08/11/17 08/11/17 01:58 02:00 02:15 Pulse Rate 149 H 151 H 146 H Respiratory 34 H 23 27 H Rate Blood Pressure 116/53 91/42 109/50 O2 Sat by Pulse 100 100 100 Oximetry 08/11/17 02:30 Pulse Rate 146 H Respiratory 31 H Rate Blood Pressure 119/57 O2 Sat by Pulse 100 Oximetry Labs 08/11/17 08/11/17 08/11/17 01:41 01:41 01:41 WBC 3.0 L RBC 2.52 L Hgb 7.2 L Hct 24.9 L MCV 99 H MCH 29 MCHC 29 L RDW 33.0 H Plt Count 20 L Seg Neutrophils % Production Floater Sodium 130 L Potassium 3.1 L Chloride 84.4 L Carbon Dioxide 7 L* Anion Gap 42 BUN 4 L Creatinine 1.2 Estimated GFR > 60 BUN/Creatinine Ratio 3 Glucose 53 L Calcium 7.6 L Magnesium 1.40 L Total Bilirubin 1.10 AST 242 H ALT 59 H Alkaline Phosphatase 184 H Total Creatine Kinase 77 Total Protein 5.5 L Albumin 2.2 L Albumin/Globulin Ratio 0.7 Acetaminophen < 5.0 L - EKG Data EKG shows normal: sinus rhythm Rate: tachycardia - EKG Data 08/11/17 03:00 EKG #1, supraventricular tachycardia, 159 bpm, normal axis, normal intervals, not consistent with STEMI. EKG #2, sinus tachycardia, 153 bpm, normal intervals, normal axis, not consistent with a STEMI - Radiology Data Radiology results: pending, report reviewed, image reviewed Noncontrast CT scan of the brain and cervical spine negative for acute disease. CT scan of the chest: negative - Medical Decision Making Differential diagnosis, including but not limited to: Supraventricular tachycardia, arrhythmia, electrolyte derangement, pulmonary embolus, symptomatic anemia, pancytopenia, alcohol withdrawal, seizure, Assessment and plan: 47-year-old male with tachycardia, improving on IV fluids. Has multiple laboratory abnormalities including pancytopenia, hypokalemia, hypomagnesemia, hypocalcemia, transaminitis. Has a history of alcohol consumption. He also has an anion gap of 42. He is also tachypneic. Etiology is most likely multifactorial. Suspect toxic metabolic etiology, less likely to be infectious. IV fluids, banana bag, seizure medication ordered. Transaminitis is likely secondary to alcohol consumption. Pancytopenia and ohara cytopenia likely related to alcohol consumption. Has no abdominal pain or tenderness. Patient will be admitted for supportive care. Critical Care Time: Yes Critical care time in (mins) excluding proc time.: 60 Critical care attestation.: If time is entered above; I have spent that time in minutes in the direct care of this critically ill patient, excluding procedure time. ED Disposition Clinical Impression: Hypomagnesemia, Thrombocytopenia, History of alcohol abuse, Seizure Disposition: OP ADMIT IP TO THIS HOSP Is pt being admited?: Yes Condition: Critical Referrals: NEYMAR JONES MD [Primary Care Provider] - 3-5 Days
[2017-08-11] MEDS ORDERED: LEVOPHED DRIP 4 MG/NS 250 ML 4 MG/250 ML BAG IV SCH (02:00)
--- NOTE | 2017-08-11 02:09 | Cat Scan Report ---
FINAL REPORT EXAM: CT HEAD/BRAIN WO CON HISTORY: syncope TECHNIQUE: Routine axial imaging was obtained of the brain without IV contrast. Comparison is made to the study of 06/29/2017. FINDINGS: There is [id number] generalized atrophy. There is no evidence of acute stroke or hemorrhage. The ventricular system is appropriate in size and is symmetric. The basal cisterns appear normal. The sinuses reveal mucosal thickening in the left maxillary and left ethmoid air cells. The mastoid air cells are well pneumatized. The calvarium appears intact. IMPRESSION: [id number] generalized atrophy. No acute stroke or hemorrhage. Left maxillary and left ethmoidal sinusitis.
[2017-08-11 02:11] LABS: Mean Corpuscular HGB Conc 29 % (32-34); Mean Corpuscular Hemoglobin 29 pg (28-32); Mean Corpuscular Volume 99 fl (84-94); Red Blood Count 2.52 M/mm3 (3.65-5.03)
--- NOTE | 2017-08-11 02:12 | Cat Scan Report ---
FINAL REPORT EXAM: CT CERVICAL SPINE WO CON HISTORY: syncope TECHNIQUE: Routine axial imaging was obtained of the cervical spine without IV contrast with sagittal and coronal reconstructions. FINDINGS: The disc heights and alignment appear normal. There no evidence of fracture. The canal size is normal. There is central bulging of the disc annulus at the C3-C4 level. The prevertebral soft tissues and C1-C2 articulation appear intact. IMPRESSION: Central bulging of the disc annulus at the C3-C4 level. No evidence of acute injury otherwise.
[2017-08-11 02:13] LABS: Hematocrit 24.9 % (35.5-45.6); Hemoglobin 7.2 gm/dl (11.8-15.2)
[2017-08-11 02:21] LABS: Alanine Aminotransferase 59 units/L (7-56); Albumin 2.2 g/dL (3.9-5); BUN/Creatinine Ratio 3; Blood Urea Nitrogen 4 mg/dL (9-20); Calcium 7.6 mg/dL (8.4-10.2); Hemolysis Index 38
[2017-08-11 02:22] LABS: Platelet Count 20 K/mm3 (140-440)
[2017-08-11] MEDS ORDERED: MAGNESIUM SULFATE 2GM/50ML 2 GM/50 ML BAG IV ONE (02:23)
[2017-08-11] MEDS ORDERED: KEPPRA 1,000 MG/NS 0.75% 100ML 1,000 MG/100 ML BAG IV ONE (02:43)
[2017-08-11] MEDS ORDERED: VITAMIN B-1 100 MG, FOLVITE 1 MG, INFUVITE 10 ML in NACL 0.9% 1000 ML 1,000 ML IV ONE (02:43)
--- NOTE | 2017-08-11 02:49 | Cat Scan Report ---
FINAL REPORT EXAM: CT ANGIO CHEST HISTORY: syncope TECHNIQUE: A CT angiogram was performed following the intravenous injection of iodinated contrast with MIP rotational, sagittal, and coronal reconstructions. FINDINGS: The lungs are clear. Pleural fluid is not seen. There is no evidence of congestion. There is no evidence of pulmonary or aortic dissection. The thoracic aorta is normal in caliber. Heart size is normal. Pericardial fluid is not seen. There is no evidence of adenopathy. There is a small hiatal hernia at the GE junction. In the upper abdomen there is markedly diminished attenuation of the liver compatible with hepatic steatosis. The adrenal glands appear normal. The skeletal structures do not show any acute changes. IMPRESSION: No evidence of renal dialysis technician, aortic dissection, or vascular congestion. No acute process in the chest. Hepatic steatosis.
[2017-08-11] MEDS ORDERED: D50W (25GM) Syringe IV ONE (02:50)
[2017-08-11] MEDS ORDERED: D50W (25GM) Syringe IV PRN (02:50)
[2017-08-11 03:13] LABS: INR 1.32 (0.87-1.13)
[2017-08-11] MEDS: KCL 10MEQ/100ML 10 MEQ/100 ML BAG IV SCH ×4 (03:44→07:12)
[2017-08-11] MEDS ORDERED: D5/0.45NS 1,000 ML IV SCH (04:00)
[2017-08-11] MEDS ORDERED: ROCEPHIN/NS 1 GM/50 ML 1 GM/50 ML BAG IV ONE (04:14)
[2017-08-11] MEDS ORDERED: LIBRIUM PO PRN (04:29)
[2017-08-11] MEDS ORDERED: ATIVAN IV PRN ×2 (04:29)
[2017-08-11] MEDS ORDERED: ATIVAN IV ONE (04:29)
[2017-08-11] MEDS ORDERED: VALIUM IV ONE (04:30)
[2017-08-11] MEDS ORDERED: cefTRIAXone 1 GM in NACL 0.9% 20 ML IV ONE (04:30)
[2017-08-11 05:08] LABS: BUN/Creatinine Ratio 3; Blood Urea Nitrogen 4 mg/dL (9-20); Hemolysis Index 13
[2017-08-11] MEDS ORDERED: SODIUM BICARBONATE IV ONE ×3 (05:19→15:05)
[2017-08-11 05:32] LABS: Anisocytosis 1+; Band Neutrophils # (Manual) 1.1 K/mm3; Basophils % (Manual) 0 % (0.0-1.8); Eosinophils % (Manual) 0 % (0.0-4.3); Hypochromasia 1+; Total Cells Counted 100
[2017-08-11 05:33] LABS: Platelet Estimate Consistent w Auto; Target Cells Rare
[2017-08-11] MEDS ORDERED: ZOFRAN IV PRN (05:42)
[2017-08-11] MEDS ORDERED: SODIUM CHLORIDE FLUSH SYRINGE 10 ML IV PRN (05:42)
[2017-08-11] MEDS ORDERED: TYLENOL PO PRN (05:42)
[2017-08-11] MEDS ORDERED: NACL 0.9% 500 ML 500 ML IV ONE (05:45)
--- NOTE | 2017-08-11 05:53 | History and Physical Report ---
History of Present Illness Date of examination: 08/11/17 History of present illness: 47-year-old man with a history of COPD, seizure, emergency room because he felt dizzy and generalized weakness. He stated that he recently lost his cousin and he started drinking heavily, he drank half a pint of vodka yesterday. Prior to this he stated that his last drink was in June. Also complaining of chest pain in the epigastric area which he describes as sharp pain, intermittent in nature lasting for 2 minutes, no radiation. Admits to shortness of breath, no nausea vomiting, diaphoresis. It was reported that the patient had a possible seizure Review Of Systems: Constitutional: no weight loss Ears, eyes, nose, mouth and throat: no nasal congestion, no nasal discharge, no sinus pressure, blurry vision, diplopia Neck: No neck pain or rigidity. Cardiovascular: no orthopnea, palpitations Respiratory: No shortness of breath, cough Gastrointestinal: no abdominal pain, hematochezia Genitourinary : no hematuria Musculoskeletal: no muscle ache Integumentary: no rash, no pruritis Neurological: no parathesias, focal weakness Endocrine: no cold or heat intolerance, no polyuria or polydipsia Hematologic/Lymphatic: no easy bruising, no easy bleeding, no gland swelling Allergic/Immunologic: no urticaria, no angioedema. PAST MEDICAL HISTORY; COPD, seizure PAST SURGICAL HISTORY: none SOCIAL HISTORY:alcohol use as discussed above, smoke 1/2 pack a day, no drugs FAMILY HISTORY:hypertension Medications and Allergies Allergies Allergy/AdvReac Type Severity Reaction Status Date / Time No Known Allergies Allergy Verified 06/29/17 22:51 Home Medications Medication Instructions Recorded Confirmed Last Taken Type Lisinopril [Zestril TAB] 10 mg PO QDAY #30 tablet 07/01/17 08/11/17 1 Week Ago Rx ~08/04/17 levETIRAcetam [Keppra TAB] 750 mg PO BID 30 Days tablet 07/01/17 08/11/17 1 Week Ago Rx ~08/04/17 Active Meds: Active Medications Acetaminophen (Tylenol) 650 mg PO Q4H PRN PRN Reason: Pain MILD(1-3)/Fever >100.5/WILSON Chlordiazepoxide HCl (Librium) 50 mg PO Q1HR PRN PRN Reason: CIWA-Ar 8-15 Dextrose (D50w (25gm) Syringe) 50 ml IV PRN PRN PRN Reason: Hypoglycemia Potassium Chloride (Kcl 10meq/100ml) 10 meq in 100 mls @ 100 mls/hr IV Q1H MELVIN Stop: 08/11/17 06:59 Last Admin: 08/11/17 04:56 Dose: 100 mls/hr Thiamine HCl 100 mg/ Folic Acid 1 mg/ Multivitamins/Minerals 10 ml/ Sodium Chloride 1,011.2 mls @ 250 mls/hr IV ONCE ONE Stop: 08/11/17 06:45 Last Admin: 08/11/17 04:52 Dose: 250 mls/hr Sodium Chloride (Nacl 0.9% 1000 Ml) 1,000 mls @ 999 mls/hr IV BOLUS ONE Stop: 08/11/17 06:19 Sodium Chloride (Nacl 0.9% 1000 Ml) 1,000 mls @ 125 mls/hr IV DIRECT MELVIN Sodium Chloride (Nacl 0.9% 500 Ml) 500 mls @ 0 mls/hr IV ONCE ONE Stop: 08/11/17 05:46 Ceftriaxone Sodium (Rocephin/Ns 1 Gm/50 Ml) 1 gm in 50 mls @ 100 mls/hr IV Q24HR MELVIN; Protocol Lorazepam (Ativan) 4 mg IV Q1HR PRN PRN Reason: CIWA-Ar 16-25 Lorazepam (Ativan) 2 mg IV Q1HR PRN PRN Reason: CIWA-Ar 8-15 Ondansetron HCl (Zofran) 4 mg IV Q8H PRN PRN Reason: Nausea And Vomiting Sodium Chloride (Sodium Chloride Flush Syringe 10 Ml) 10 ml IV BID MELVIN Sodium Chloride (Sodium Chloride Flush Syringe 10 Ml) 10 ml IV PRN PRN PRN Reason: LINE FLUSH Exam - Physical Exam Narrative exam: Gen. appearance: Patient lying in bed, no apparent distress HEENT: Normocephalic, atraumatic, pupils equally round and reactive to light, extraocular movement intact, and no sclericterus,. No JVD or thyromegaly or nodule,neck supple, no carotid bruit ,mucous membranes moist, no exudate or erythema Heart: S1, S2, regular rate and rhythm Lungs: Wheezing, crackles , breathing comfortable Abdomen: Positive bowel sounds, nontender, nondistended, no organomegaly Extremity: +tremors, No edema, cyanosis, clubbing Skin: No rash, nodules, warm, dry Neuro: Oriented 3, cranial nerves II-12 intact, speech is fluent, motor and sensory intact - Constitutional Vitals: Temp Pulse Resp BP Pulse Ox 98.1 F 145 H 35 H 85/45 100 08/11/17 03:16 08/11/17 05:00 08/11/17 05:00 08/11/17 05:00 08/11/17 05:00 Results - Labs CBC & Chem 7: 08/11/17 01:41 08/11/17 04:27 Labs: Abnormal lab results 08/11/17 08/11/17 08/11/17 Range/Units 01:41 01:41 01:41 WBC 3.0 L (4.5-11.0) K/mm3 RBC 2.52 L (3.65-5.03) M/mm3 Hgb 7.2 L (11.8-15.2) gm/dl Hct 24.9 L (35.5-45.6) % MCV 99 H (84-94) fl MCHC 29 L (32-34) % RDW 33.0 H (13.2-15.2) % Plt Count 20 L (140-440) K/mm3 Lymphocytes % (Manual) 3.0 L (13.4-35.0) % Nucleated RBC % 13.0 H (0.0-0.9) % Seg Neutrophils # Man 1.7 L (1.8-7.7) K/mm3 Lymphocytes # (Manual) 0.1 L (1.2-5.4) K/mm3 PT (12.2-14.9) Sec. INR (0.87-1.13) Sodium 130 L (137-145) mmol/L Potassium 3.1 L (3.6-5.0) mmol/L Chloride 84.4 L (98-107) mmol/L Carbon Dioxide 7 L* (22-30) mmol/L BUN 4 L (9-20) mg/dL Glucose 53 L (75-100) mg/dL Lactic Acid (0.7-2.0) mmol/L Calcium 7.6 L (8.4-10.2) mg/dL Magnesium 1.40 L (1.7-2.3) mg/dL AST 242 H (5-40) units/L ALT 59 H (7-56) units/L Alkaline Phosphatase 184 H (35-129) units/L Total Protein 5.5 L (6.3-8.2) g/dL Albumin 2.2 L (3.9-5) g/dL Salicylates < 0.3 L (2.8-20.0) mg/dL Acetaminophen (10.0-30.0) ug/mL Plasma/Serum Alcohol (0-0.07) % Crossmatch 08/11/17 08/11/17 08/11/17 Range/Units 01:41 01:41 02:42 WBC (4.5-11.0) K/mm3 RBC (3.65-5.03) M/mm3 Hgb (11.8-15.2) gm/dl Hct (35.5-45.6) % MCV (84-94) fl MCHC (32-34) % RDW (13.2-15.2) % Plt Count (140-440) K/mm3 Lymphocytes % (Manual) (13.4-35.0) % Nucleated RBC % (0.0-0.9) % Seg Neutrophils # Man (1.8-7.7) K/mm3 Lymphocytes # (Manual) (1.2-5.4) K/mm3 PT 17.1 H (12.2-14.9) Sec. INR 1.32 H (0.87-1.13) Sodium (137-145) mmol/L Potassium (3.6-5.0) mmol/L Chloride (98-107) mmol/L Carbon Dioxide (22-30) mmol/L BUN (9-20) mg/dL Glucose (75-100) mg/dL Lactic Acid (0.7-2.0) mmol/L Calcium (8.4-10.2) mg/dL Magnesium (1.7-2.3) mg/dL AST (5-40) units/L ALT (7-56) units/L Alkaline Phosphatase (35-129) units/L Total Protein (6.3-8.2) g/dL Albumin (3.9-5) g/dL Salicylates (2.8-20.0) mg/dL Acetaminophen < 5.0 L (10.0-30.0) ug/mL Plasma/Serum Alcohol (0-0.07) % Crossmatch See Detail 08/11/17 08/11/17 08/11/17 Range/Units 02:50 02:50 04:15 WBC (4.5-11.0) K/mm3 RBC (3.65-5.03) M/mm3 Hgb (11.8-15.2) gm/dl Hct (35.5-45.6) % MCV (84-94) fl MCHC (32-34) % RDW (13.2-15.2) % Plt Count (140-440) K/mm3 Lymphocytes % (Manual) (13.4-35.0) % Nucleated RBC % (0.0-0.9) % Seg Neutrophils # Man (1.8-7.7) K/mm3 Lymphocytes # (Manual) (1.2-5.4) K/mm3 PT (12.2-14.9) Sec. INR (0.87-1.13) Sodium (137-145) mmol/L Potassium (3.6-5.0) mmol/L Chloride (98-107) mmol/L Carbon Dioxide (22-30) mmol/L BUN (9-20) mg/dL Glucose (75-100) mg/dL Lactic Acid 18.80 H* 17.80 H* (0.7-2.0) mmol/L Calcium (8.4-10.2) mg/dL Magnesium (1.7-2.3) mg/dL AST (5-40) units/L ALT (7-56) units/L Alkaline Phosphatase (35-129) units/L Total Protein (6.3-8.2) g/dL Albumin (3.9-5) g/dL Salicylates (2.8-20.0) mg/dL Acetaminophen (10.0-30.0) ug/mL Plasma/Serum Alcohol 0.14 H (0-0.07) % Crossmatch 08/11/17 Range/Units 04:27 WBC (4.5-11.0) K/mm3 RBC (3.65-5.03) M/mm3 Hgb (11.8-15.2) gm/dl Hct (35.5-45.6) % MCV (84-94) fl MCHC (32-34) % RDW (13.2-15.2) % Plt Count (140-440) K/mm3 Lymphocytes % (Manual) (13.4-35.0) % Nucleated RBC % (0.0-0.9) % Seg Neutrophils # Man (1.8-7.7) K/mm3 Lymphocytes # (Manual) (1.2-5.4) K/mm3 PT (12.2-14.9) Sec. INR (0.87-1.13) Sodium 127 L (137-145) mmol/L Potassium 3.0 L (3.6-5.0) mmol/L Chloride 85.4 L (98-107) mmol/L Carbon Dioxide 7 L* (22-30) mmol/L BUN 4 L (9-20) mg/dL Glucose 234 H (75-100) mg/dL Lactic Acid (0.7-2.0) mmol/L Calcium 7.0 L (8.4-10.2) mg/dL Magnesium (1.7-2.3) mg/dL AST (5-40) units/L ALT (7-56) units/L Alkaline Phosphatase (35-129) units/L Total Protein (6.3-8.2) g/dL Albumin (3.9-5) g/dL Salicylates (2.8-20.0) mg/dL Acetaminophen (10.0-30.0) ug/mL Plasma/Serum Alcohol (0-0.07) % Crossmatch - Imaging and Cardiology CT scan - chest: report reviewed CT Scan - head: report reviewed Assessment and Plan CT c/spine reviewed Assessment Alcohol withdrawal/DT Pancytopenia secondary to aclcoholism Metabolic acidosis/alcohol ketosis COPD Seizure Plan Admit to medicine Start CIWA protocol with IV ativan Start IV fluids, transfuse packed red blood cells Consult hematology S/p IV rocephin in the ER, continue rocephin, follow cultures No signs of infection Give bicarb now, bicarb also given in the emergency room Hold antihypertensives Restart keppra DVT prophylaxis
[2017-08-11] MEDS ORDERED: NACL 0.9% 1000 ML 1,000 ML IV SCH (06:00)
[2017-08-11] MEDS ORDERED: KCL 10MEQ/100ML 10 MEQ/100 ML BAG IV ONE ×2 (06:09→07:06)
[2017-08-11] MEDS ORDERED: NACL 0.9% 500 ML 500 ML IV SCH (09:44)
--- NOTE | 2017-08-11 09:52 | Hem/Onc Consultation ---
History of Present Illness - Reason for Consult Consult date: 08/11/17 - History of Present Illness dictated Medications and Allergies Allergies Allergy/AdvReac Type Severity Reaction Status Date / Time No Known Allergies Allergy Verified 06/29/17 22:51 Home Medications Medication Instructions Recorded Confirmed Last Taken Type Lisinopril [Zestril TAB] 10 mg PO QDAY #30 tablet 07/01/17 08/11/17 1 Week Ago Rx ~08/04/17 levETIRAcetam [Keppra TAB] 750 mg PO BID 30 Days tablet 07/01/17 08/11/17 1 Week Ago Rx ~08/04/17 Active Meds: Active Medications Acetaminophen (Tylenol) 650 mg PO Q4H PRN PRN Reason: Pain MILD(1-3)/Fever >100.5/WILSON Chlordiazepoxide HCl (Librium) 50 mg PO Q1HR PRN PRN Reason: CIWA-Ar 8-15 Dextrose (D50w (25gm) Syringe) 50 ml IV PRN PRN PRN Reason: Hypoglycemia Sodium Chloride (Nacl 0.9% 1000 Ml) 1,000 mls @ 125 mls/hr IV DIRECT MELVIN Ceftriaxone Sodium 1 gm/ (Sodium Chloride) 20 mls @ 2 mls/min IV Q24H MELVIN Sodium Chloride (Nacl 0.9% 500 Ml) 500 mls @ 0 mls/hr IV ONCE ONE Stop: 08/11/17 09:45 Levetiracetam (Keppra) 750 mg PO BID MELVIN Lorazepam (Ativan) 4 mg IV Q1HR PRN PRN Reason: CIWA-Ar 16-25 Lorazepam (Ativan) 2 mg IV Q1HR PRN PRN Reason: CIWA-Ar 8-15 Ondansetron HCl (Zofran) 4 mg IV Q8H PRN PRN Reason: Nausea And Vomiting Sodium Chloride (Sodium Chloride Flush Syringe 10 Ml) 10 ml IV BID MELVIN Sodium Chloride (Sodium Chloride Flush Syringe 10 Ml) 10 ml IV PRN PRN PRN Reason: LINE FLUSH Exam - Constitutional Vitals: Last Vital Signs Temp 98.1 F 08/11/17 03:16 Pulse 145 H 08/11/17 08:27 Resp 32 H 08/11/17 08:14 BP 152/95 08/11/17 08:01 Pulse Ox 98 08/11/17 08:14 Results - Labs lab Results: Laboratory Results - last 24 hr 08/11/17 08/11/17 08/11/17 01:41 01:41 01:41 WBC 3.0 L RBC 2.52 L Hgb 7.2 L Hct 24.9 L MCV 99 H MCH 29 MCHC 29 L RDW 33.0 H Plt Count 20 L Add Manual Diff Complete Total Counted 100 Seg Neutrophils % Manager Group Seg Neuts % (Manual) 58.0 Band Neutrophils % 38.0 Lymphocytes % (Manual) 3.0 L Reactive Lymphs % (Man) 0 Monocytes % (Manual) 1.0 Eosinophils % (Manual) 0 Basophils % (Manual) 0 Metamyelocytes % 0 Myelocytes % 0 Promyelocytes % 0 Blast Cells % 0 Nucleated RBC % 13.0 H Seg Neutrophils # Man 1.7 L Band Neutrophils # 1.1 Lymphocytes # (Manual) 0.1 L Abs React Lymphs (Man) 0.0 Monocytes # (Manual) 0.0 Eosinophils # (Manual) 0.0 Basophils # (Manual) 0.0 Metamyelocytes # 0.0 Myelocytes # 0.0 Promyelocytes # 0.0 Blast Cells # 0.0 WBC Morphology Not Reportable Hypersegmented Neuts Not Reportable Hyposegmented Neuts Not Reportable Hypogranular Neuts Not Reportable Smudge Cells Not Reportable Toxic Granulation Not Reportable Toxic Vacuolation Not Reportable Dohle Bodies Not Reportable Pelger-Huet Anomaly Not Reportable Rehan Rods Not Reportable Platelet Estimate Consistent w auto Clumped Platelets Not Reportable Plt Clumps, EDTA Not Reportable Large Platelets Not Reportable Giant Platelets Not Reportable Platelet Satelliting Not Reportable Plt Morphology Comment Not Reportable RBC Morphology Not Reportable Dimorphic RBCs Not Reportable Polychromasia 1+ Hypochromasia 1+ Poikilocytosis Not Reportable Anisocytosis 1+ Microcytosis Not Reportable Macrocytosis Not Reportable Spherocytes Not Reportable Pappenheimer Bodies Not Reportable Sickle Cells Not Reportable Target Cells Rare Tear Drop Cells Not Reportable Ovalocytes Not Reportable Helmet Cells Not Reportable Millan-Moraine Bodies Not Reportable Corning Rings Not Reportable Stephanie Cells Not Reportable Bite Cells Not Reportable Crenated Cell Not Reportable Elliptocytes Not Reportable Acanthocytes (Spur) Not Reportable Rouleaux Not Reportable Hemoglobin C Crystals Not Reportable Schistocytes Not Reportable Malaria parasites Not Reportable Evangelist Bodies Not Reportable Hem Pathologist Commnt No PT INR Sodium 130 L Potassium 3.1 L Chloride 84.4 L Carbon Dioxide 7 L* Anion Gap 42 BUN 4 L Creatinine 1.2 Estimated GFR > 60 BUN/Creatinine Ratio 3 Glucose 53 L Lactic Acid Calcium 7.6 L Magnesium 1.40 L Total Bilirubin 1.10 AST 242 H ALT 59 H Alkaline Phosphatase 184 H Total Creatine Kinase 77 Total Protein 5.5 L Albumin 2.2 L Albumin/Globulin Ratio 0.7 TSH 2.800 Salicylates Acetaminophen Plasma/Serum Alcohol Blood Type Antibody Screen Crossmatch 08/11/17 08/11/17 08/11/17 01:41 01:41 01:41 WBC RBC Hgb Hct MCV MCH MCHC RDW Plt Count Add Manual Diff Total Counted Seg Neutrophils % Seg Neuts % (Manual) Band Neutrophils % Lymphocytes % (Manual) Reactive Lymphs % (Man) Monocytes % (Manual) Eosinophils % (Manual) Basophils % (Manual) Metamyelocytes % Myelocytes % Promyelocytes % Blast Cells % Nucleated RBC % Seg Neutrophils # Man Band Neutrophils # Lymphocytes # (Manual) Abs React Lymphs (Man) Monocytes # (Manual) Eosinophils # (Manual) Basophils # (Manual) Metamyelocytes # Myelocytes # Promyelocytes # Blast Cells # WBC Morphology Hypersegmented Neuts Hyposegmented Neuts Hypogranular Neuts Smudge Cells Toxic Granulation Toxic Vacuolation Dohle Bodies Pelger-Huet Anomaly Rehan Rods Platelet Estimate Clumped Platelets Plt Clumps, EDTA Large Platelets Giant Platelets Platelet Satelliting Plt Morphology Comment RBC Morphology Dimorphic RBCs Polychromasia Hypochromasia Poikilocytosis Anisocytosis Microcytosis Macrocytosis Spherocytes Pappenheimer Bodies Sickle Cells Target Cells Tear Drop Cells Ovalocytes Helmet Cells Millan-Moraine Bodies [place] Rings Stephanie Cells Bite Cells Crenated Cell Elliptocytes Acanthocytes (Spur) Rouleaux Hemoglobin C Crystals Schistocytes Malaria parasites Evangelist Bodies Hem Pathologist Commnt PT INR Sodium Potassium Chloride Carbon Dioxide Anion Gap BUN Creatinine Estimated GFR BUN/Creatinine Ratio Glucose Lactic Acid Calcium Magnesium Total Bilirubin AST ALT Alkaline Phosphatase Total Creatine Kinase Total Protein Albumin Albumin/Globulin Ratio TSH Salicylates < 0.3 L Acetaminophen < 5.0 L Plasma/Serum Alcohol Blood Type O POSITIVE Antibody Screen Negative Crossmatch See Detail 08/11/17 08/11/17 08/11/17 02:42 02:50 02:50 WBC RBC Hgb Hct MCV MCH MCHC RDW Plt Count Add Manual Diff Total Counted Seg Neutrophils % Seg Neuts % (Manual) Band Neutrophils % Lymphocytes % (Manual) Reactive Lymphs % (Man) Monocytes % (Manual) Eosinophils % (Manual) Basophils % (Manual) Metamyelocytes % Myelocytes % Promyelocytes % Blast Cells % Nucleated RBC % Seg Neutrophils # Man Band Neutrophils # Lymphocytes # (Manual) Abs React Lymphs (Man) Monocytes # (Manual) Eosinophils # (Manual) Basophils # (Manual) Metamyelocytes # Myelocytes # Promyelocytes # Blast Cells # WBC Morphology Hypersegmented Neuts Hyposegmented Neuts Hypogranular Neuts Smudge Cells Toxic Granulation Toxic Vacuolation Dohle Bodies Pelger-Huet Anomaly Rehan Rods Platelet Estimate Clumped Platelets Plt Clumps, EDTA Large Platelets Giant Platelets Platelet Satelliting Plt Morphology Comment RBC Morphology Dimorphic RBCs Polychromasia Hypochromasia Poikilocytosis Anisocytosis Microcytosis Macrocytosis Spherocytes Pappenheimer Bodies Sickle Cells Target Cells Tear Drop Cells Ovalocytes Helmet Cells Millan-Moraine Bodies [place] Rings [place] Cells Bite Cells Crenated Cell Elliptocytes Acanthocytes (Spur) Rouleaux Hemoglobin C Crystals Schistocytes Malaria parasites Evangleist Bodies Hem Pathologist Commnt PT 17.1 H INR 1.32 H Sodium Potassium Chloride Carbon Dioxide Anion Gap BUN Creatinine Estimated GFR BUN/Creatinine Ratio Glucose Lactic Acid 18.80 H* Calcium Magnesium Total Bilirubin AST ALT Alkaline Phosphatase Total Creatine Kinase Total Protein Albumin Albumin/Globulin Ratio TSH Salicylates Acetaminophen Plasma/Serum Alcohol 0.14 H Blood Type Antibody Screen Crossmatch 08/11/17 08/11/17 04:15 04:27 WBC RBC Hgb Hct MCV MCH MCHC RDW Plt Count Add Manual Diff Total Counted Seg Neutrophils % Seg Neuts % (Manual) Band Neutrophils % Lymphocytes % (Manual) Reactive Lymphs % (Man) Monocytes % (Manual) Eosinophils % (Manual) Basophils % (Manual) Metamyelocytes % Myelocytes % Promyelocytes % Blast Cells % Nucleated RBC % Seg Neutrophils # Man Band Neutrophils # Lymphocytes # (Manual) Abs React Lymphs (Man) Monocytes # (Manual) Eosinophils # (Manual) Basophils # (Manual) Metamyelocytes # Myelocytes # Promyelocytes # Blast Cells # WBC Morphology Hypersegmented Neuts Hyposegmented Neuts Hypogranular Neuts Smudge Cells Toxic Granulation Toxic Vacuolation Dohle Bodies Pelger-Huet Anomaly Rehan Rods Platelet Estimate Clumped Platelets Plt Clumps, EDTA Large Platelets Giant Platelets Platelet Satelliting Plt Morphology Comment RBC Morphology Dimorphic RBCs Polychromasia Hypochromasia Poikilocytosis Anisocytosis Microcytosis Macrocytosis Spherocytes Pappenheimer Bodies Sickle Cells Target Cells Tear Drop Cells Ovalocytes Helmet Cells Millan-Moraine Bodies [place] Rings Stephanie Cells Bite Cells Crenated Cell Elliptocytes Acanthocytes (Spur) Rouleaux Hemoglobin C Crystals Schistocytes Malaria parasites Evangelist Bodies Hem Pathologist Commnt PT INR Sodium 127 L Potassium 3.0 L Chloride 85.4 L Carbon Dioxide 7 L* Anion Gap 38 BUN 4 L Creatinine 1.3 Estimated GFR > 60 BUN/Creatinine Ratio 3 Glucose 234 H Lactic Acid 17.80 H* Calcium 7.0 L Magnesium Total Bilirubin AST ALT Alkaline Phosphatase Total Creatine Kinase Total Protein Albumin Albumin/Globulin Ratio TSH Salicylates Acetaminophen Plasma/Serum Alcohol Blood Type Antibody Screen Crossmatch
[2017-08-11] MEDS ORDERED: SODIUM CHLORIDE FLUSH SYRINGE 10 ML IV SCH (10:00)
[2017-08-11] MEDS ORDERED: ROCEPHIN/NS 1 GM/50 ML 1 GM/50 ML BAG IV SCH (10:00)
[2017-08-11] MEDS ORDERED: KEPPRA PO SCH (10:00)
[2017-08-11] MEDS ORDERED: VANCOMYCIN VIAL IV ONE (10:03)
[2017-08-11 10:51] LABS: % Iron Saturation 29.05 %
[2017-08-11] MEDS ORDERED: VANCOMYCIN PHARMACY TO DOSE IV SCH (11:00)
--- NOTE | 2017-08-11 11:18 | Event Note ---
Date: 08/11/17 I was called to see this patient in ER bed #2 secondary to a CODE BLUE being called. Patient had been found by the nurse to be pulseless and unresponsive. The patient appeared to be in PEA and did not have any spontaneous respirations. Patient was intubated while ACLS protocol was going on. He received chest compressions. He received a total of 5 doses of epinephrine, one of sodium bicarbonate, 1 g of magnesium, 300 mg of amiodarone. The patient was PEA for the first 2 rounds, then he appeared to be in polymorphic V. tach. For this reason he was given 2 different defibrillations at 200 J for the two V. tach found on subsequent rounds and on the fifth around the patient was back in PEA. ACLS started at 10:41 AM. The patient never had a return of spontaneous circulation and a bedside ultrasound was used to take a look at the heart and there was absolutely no movement, squeeze or even fibrillation. At this point, ACLS protocol had been going on, and the patient had been pulseless , for about 25 minutes. Time of was called at 11:06 AM. I had taken a look at the patient's labs and it showed a severe lactic acidosis, some anemia with a hemoglobin of 7.2, some hypokalemia with potassium of 3 but no renal insufficiency. The hospitalist for this case, Dr Omalley, was bedside throughout most of the code. Procedure: Intubation This was done as an emergent procedure secondary to the cardiac arrest and therefore no verbal or written permission was obtained. Suction was available at bedside. A Mac 4 blade was used and the vocal cords were directly seen. A 7.5 ET tube was placed through the vocal cords to about 24 cm at the lips. The cuff was inflated. There was good condensation seen within the tube. There was chest rise and bilateral breath sounds heard. No obvious crepitations from this procedure.
[2017-08-11 11:25] VITALS: BP 92/54
[2017-08-11] MEDS ORDERED: ZOSYN/NS 4.5GM/100ML 4.5 GM/100 ML VIAL IV SCH (12:00)
[2017-08-11] MEDS ORDERED: VANCOMYCIN 1,250 MG in NACL 0.9% 250ML 250 ML IV SCH (12:00)
--- NOTE | 2017-08-11 14:11 | Death Summary ---
Summary - Providers Date of service: 08/11/17 Consults: 08/11/17 05:42 Consult to Physician [CONS] Routine Comment: OFFICE NOTIFIED [id number] MARTHA Consulting Provider: RYAN ANDERSON Physician Instructions: Reason For Exam: thrombocytopenia - summary Date of : 08/11/17 Disposition: This is a 47-year-old male who reportedly presented through the emergency department by EMS with possible seizure versus syncope, tachycardia, possible SVT. EMS reported that patient in the field had a supraventricular tachycardia did that did not respond to vagal maneuvers or to 100 J shock. They also report that the patient was diaphoretic, complaining of chest pain and weakness , and had no pulses. Upon arrival to the ER, the patient was awake, complaining of generalized weakness and had thready pulses. He had a tachycardic rhythm that was consistently 160 bpm, appeared to be consistent with supraventricular tachycardia. It did not respond to vagal maneuvers, the patient was hypotensive. He was therefore administrated weakly consented by the ER physician for moderate sedation and synchronized cardioversion. He was given 10 mg of etomidate, and 25 g of fentanyl, and received a cardioversion at 200 J. All of the above history was obtained from the ER record. Patient was later admitted by Dr. Марина Chawla to the telemetry floor with a diagnosis of alcohol withdrawal/delirium tremens, anemia, thrombocytopenia, metabolic acidosis, COPD and seizure. The patient remained in the emergency room while awaiting a bed. Patient was placed on CIWA protocol and received IV Ativan. Hematology consultation was obtained. I was notified at approximately 10 AM on 08/11/17 that the patient was hypotensive. IV fluid bolus was given and orders for aggressive IV fluid hydration as well as pressors if patient did not respond to fluids. Broader spectrum antibiotics were added and patient was placed on sepsis protocol. I also changed the patient's inpatient status to ICU transfer immediately. Unfortunately, A CODE BLUE was called shortly after the episode of hypotension and the ER physician responded. Reportedly, the patient had been found by the nurse to be pulseless and unresponsive. The patient appeared to be in PEA and did not have any spontaneous respirations. Patient was intubated while ACLS protocol was going on. I arrived to the CODE BLUE in progress. Please see code note for details. The patient had no ROSC. I reviewed the patient's laboratory values and it revealed severe lactic acidosis and anemia. Time of was called at 11:06 AM. Family was notified. Dedicated summary time 34 minutes. - Final diagnosis (1) Sepsis Note: Final diagnosis: (2) Lactic acidosis Note: Final diagnosis: (3) Lactic acidosis Note: Final diagnosis: (4) COPD bronchitis Note: Final diagnosis: (5) PEA (Pulseless electrical activity) Note: Final diagnosis: (6) Sepsis Note: Final diagnosis:
[2017-08-11] MEDS ORDERED: MAGNESIUM SULFATE ONE (15:05)
[2017-08-11] MEDS ORDERED: ADRENALIN ONE (15:05)
[2017-08-11] MEDS ORDERED: CORDARONE IV ONE (15:05)
--- NOTE | 2017-08-11 20:50 | Consultation ---
REFERRING PHYSICIAN: Dr. Марина Chawla. REASON FOR CONSULTATION: Pancytopenia. HISTORY OF PRESENT ILLNESS: The patient is a 47-year-old male with history of COPD, seizure disorder, who came to the hospital because of being dizzy with generalized weakness. He has been drinking a lot and has had history of alcohol abuse. He presented to the hospital and there was a possibility of syncope versus seizures. He also was found by EMS to have supraventricular tachycardia, which did not respond to vagal maneuvers. On his admission, he also underwent a CT of the chest, which did not show any pulmonary embolus. CT of the head, which did not show any bleeding. He was found to have pancytopenia with a hemoglobin of 7.2, white count 3.0, platelets 20,000. The patient also showed evidence of elevated lactic acid at 18.8, low carbon dioxide at 7, which was repleted, elevated liver enzymes, AST of 242, ALT 59, alkaline phosphatase 184. His alcohol level was 0.14. He is to receive packed RBCs. He is also being admitted to the hospital. PAST MEDICAL HISTORY: From the chart shows the patient to have history of COPD, seizure disorder, alcohol abuse. He also has history of tobacco abuse. SOCIAL HISTORY: Denies any drug abuse. MEDICATIONS: The patient last month also was placed on Keppra according to the note. Last taken according to the ER note about a week ago. PHYSICAL EXAMINATION: GENERAL: The patient is sleepy, not able to give me full history. HEENT: Reveals pallor. No adenopathy was noted. CHEST: Clear anteriorly. ABDOMEN: Soft. EXTREMITIES: No edema. LABORATORY DATA: As mentioned in history of present illness. ASSESSMENT: Pancytopenia, could be from acute alcohol abuse, rule out cirrhosis of the liver, rule out other causes of thrombocytopenia including B12, folate levels also, and hepatitis. RECOMMENDATION AND PLAN: At this time, the patient is prone to seizures. Because of his low platelets, I will go ahead and give him a unit of platelets. Follow counts. We will do anemia workup. Agree with packed RBCs. We will closely monitor. The patient has a positive guaiac and would need gastroenterology evaluation. The patient's lactic acid level, high blood cultures have been ordered. We will follow to rule out any infection that may be contributing to worsening pancytopenia. JOB# [id number] ARLET/LUIS MIGUEL
[2017-08-12] MEDS ORDERED: cefTRIAXone 1 GM in NACL 0.9% 20 ML IV SCH (06:00)
== END 2017-08-11 16:48 | disposition admitted as inpatient to this hospital (09) ==
LOC: ED 00:58 → 4A 05:42 → UNDOADMIN 05:42 → ED 16:48
DX: D69.6 Thrombocytopenia, unspecified (principal); F10.239 Alcohol dependence with withdrawal, unspecified; E83.42 Hypomagnesemia; R53.1 Weakness
CPT/HCPCS: 36415; 36569; 70450; 71275; 72125; 80048; 80053; 82140; 82271; 82550; 82607; 82728; 82747; 83550; 83735; 84443; 85007; 85025; 85045; 85610; 86706; 86803; 86850; 86900; 86901; 86920; 87040; 93005; 93010; 99291; G0480; J0171; J0282; J0696; J1953; J2060; J2405; J2543; J3010; J3370; J3411; J3475; J3480; J7030; J7050; Q9967; 80320